=== PATIENT | female | born 1935 | race Caucasian/White ===

== ENCOUNTER 2021-08-07 11:13 | Day surgery (SDC) | payer MEDICARE ==
[~2021-08-07] VITALS: Ht 154.9 cm; Wt 83.3 kg
[~2021-08-07 11:13] MED LIST: ACET-812 PO; CALC-1215 PO; CELE-193 PO; CHOL2000 PO; CIDE300T3 PO; DOCU-272 PO; FERR134T2 PO; MELO7.5T12 PO; MULT-1133 PO; OLOP2.5D12 EACHEYE
[2021-08-07] MEDS ORDERED: POLY1DRO2 OP (11:40)
[2021-08-07] MEDS ORDERED: ASCO-336 PO (11:40)
[2021-08-07] MEDS ORDERED: CALC500T11 PO (11:40)
[2021-08-07] MEDS ORDERED: EUCA170O5 TOP (11:42)
[2021-08-07 11:51] VITALS: BP 157/80
[2021-08-07 12:19] LABS: BASOPHILS # (AUTO) 0.1 X10'3 (0-0.2); EOSINOPHILS # (AUTO) 0.2 X10'3 (0-0.9); EOSINOPHILS % (AUTO) 2.3 % (0-6); HEMATOCRIT 42.4 % (35.0-45.0); HEMOGLOBIN 14.1 g/dl (12.0-16.0); MEAN CORPUSCULAR HEMOGLOBIN 28.3 PG (27.0-31.0); MEAN CORPUSCULAR HGB CONC 33.4 g/dL (33.0-36.5); MEAN CORPUSCULAR VOLUME 84.8 FL (78-98); MEAN PLATELET VOLUME 8.1 FL (7.4-10.4); MONOCYTES # (AUTO) 0.7 X10'3 (0-0.9); MONOCYTES % (AUTO) 9.2 % (2-12); NEUTROPHILS # (AUTO) 4.9 X10'3 (1.8-7.7); NEUTROPHILS % (AUTO) 62.5 % (42-75); PLATELET COUNT 254 X10'3 (140-440); WHITE BLOOD COUNT 7.8 X10'3 (4.5-11.0)
[2021-08-07] MEDS ORDERED: LIDOCAINE 1% w/preservative (10 MG/ML) inj. 10mL VIAL ONE (12:55)
[2021-08-07] MEDS ORDERED: midazolam 1 mg/ML 2ml injection ONE (12:55)
[2021-08-07] MEDS ORDERED: heparin sodium, porcine/PF 100unit/ml 5ML syringe ONE (12:55)
[2021-08-07] MEDS ORDERED: fentaNYL/PF 50MCG/1 ML 2ML syringe ONE (12:55)
[2021-08-07] MEDS ORDERED: normal saline 1000ml 1,000 ML IV SCH (13:15)
[2021-08-07 14:20] VITALS: BP 156/36
[2021-08-07 14:30] VITALS: BP 158/79
[2021-08-07 14:45] VITALS: BP 171/80
[2021-08-07 15:00] VITALS: BP 155/77
[2021-08-07 15:10] VITALS: BP 155/79
== END 2021-08-07 15:28 | disposition home or self-care (01) ==
LOC: SSTAY O 11:13
PROVIDERS: ATTEND Radiology Diagnostic Radiology
DX: C34.31 Malignant neoplasm of lower lobe, right bronchus or lung (principal); M19.90 Unspecified osteoarthritis, unspecified site; K21.9 Gastro-esophageal reflux disease without esophagitis; Z79.01 Long term (current) use of anticoagulants; Z79.899 Other long term (current) drug therapy; Z88.8 Allergy status to other drugs, medicaments and biological substances; Z88.2 Allergy status to sulfonamides; Z91.040 Latex allergy status; Z91.018 Allergy to other foods; Z91.013 Allergy to seafood
CPT/HCPCS: 36415; 36561; 76937; 77001; 85025; 85610; 99152; 99153; C1769; C1788; C1894; J1642; J2250; J3010